=== PATIENT | male | born 1985 | race Hispanic/Latino ===

== ENCOUNTER 2017-07-20 20:03 | Emergency (ER) | payer SELFPAY ==
[~2017-07-20] VITALS: Ht 170.2 cm; Wt 72.6 kg
[2017-07-20] MEDS ORDERED: HYDROCODONE/APAP 10MG-325MG TAB PO ONE (20:15)
--- NOTE | 2017-07-20 21:55 | Diagnostic Imaging Report ---
FOOT RIGHT COMPLETE HISTORY: Great toe pain status post trauma COMPARISON: None FINDINGS: Bones: Acute, oblique, nondisplaced fracture of the distal phalanx of the first toe with extension to the interphalangeal joint Osseous alignment is within normal limits. Joints: The joint spaces are well-maintained. Soft tissues: The soft tissues appear unremarkable. IMPRESSION: Acute, oblique, nondisplaced fracture of the distal phalanx of the first toe with extension to the interphalangeal joint. Signed by: Dr. Don Kent M.D. on 07/20/2017 9:52 PM
== END 2017-07-20 21:56 | disposition home or self-care (01) ==
LOC: ER 20:03
DX: S92.424A Nondisplaced fracture of distal phalanx of right great toe, initial encounter for closed fracture (principal); W20.8XXA Other cause of strike by thrown, projected or falling object, initial encounter; Y93.B3 Activity, free weights; Y92.838 Other recreation area as the place of occurrence of the external cause
CPT/HCPCS: 99283